=== PATIENT | female | born 1970 | race Caucasian/White ===

== ENCOUNTER 2017-06-18 15:09 | Emergency (ER) | payer OTHER ==
[2017-06-18 15:20] VITALS: BP 130/73
--- NOTE | 2017-06-26 21:49 | UC ---
Back Pain HPI - HPI Summary HPI Summary: 47 YEAR OLD FEMALE PRESENTS WITH COMPLAINS OF LOWER BACK PAIN. - History of Current Complaint Chief Complaint: UCBackPain Stated Complaint: BACK INJURY Time Seen by Provider: 06/18/17 15:22 Hx Obtained From: Patient Hx Last Menstrual Period: IUD Onset/Duration: Sudden Onset Timing: Constant Pain Intensity: 8 Pain Scale Used: 0-10 Numeric Character: Sharp Aggravating: Movement Associated Signs And Symptoms: Positive: Negative - Allergies/Home Medications Allergies/Adverse Reactions: Allergies Allergy/AdvReac Type Severity Reaction Status Date / Time Clonazepam Allergy Severe Altered Verified 06/18/17 15:20 Mental Status PMH/Surg Hx/FS Hx/Imm Hx Previously Healthy: Yes - Surgical History Surgical History: Yes Surgery Procedure, Year, and Place: RT FOOT TENDON SURGERY 2008 x2, PARTIAL DISCECTOMY 1995. LAMINECTOMY -L3-11 MAY 2014-07/2016 NREMOVED HARDWARE FROM RIGHT FOOT - Family History Known Family History: Negative: Cardiac Disease - pt denies - Social History Alcohol Use: Rare Alcohol Amount: 1-2 PER MONTH Substance Use Type: None Smoking Status (MU): Former Smoker Type: Cigarettes Amount Used/How Often: 1/2 ppd Length of Time of Smoking/Using Tobacco: 5 years Have You Smoked in the Last Year: Yes Household Exposure Type: Cigarettes - Immunization History Most Recent Influenza Vaccination: [id number] season Review of Systems Constitutional: Negative Skin: Negative Eyes: Negative ENT: Negative Respiratory: Negative Cardiovascular: Negative Gastrointestinal: Negative Genitourinary: Negative Motor: Negative Neurovascular: Negative Musculoskeletal: Myalgia, Other: - LOWER LUMBAR BACK PAIN Neurological: Negative Psychological: Negative All Other Systems Reviewed And Are Negative: Yes Physical Exam Triage Information Reviewed: Yes Vital Signs: Initial Vital Signs Temp 37.2 C 06/18/17 15:17 Pulse 98 06/18/17 15:17 Resp 12 06/18/17 15:17 BP 130/73 06/18/17 15:17 Pulse Ox 99 06/18/17 15:17 Eye Exam: Normal ENT Exam: Normal Dental Exam: Normal Neck exam: Normal Neck: Positive: 1 Respiratory Exam: Normal Cardiovascular Exam: Normal Abdominal Exam: Normal Musculoskeletal: Positive: Strength Limited @, ROM Limited @, Other: - LOWER LUMBAR PAIN Neurological Exam: Normal Psychological Exam: Normal Skin Exam: Normal Back Pain Course/Dx - Differential Dx/Diagnosis Provider Diagnoses: LOWER BACK PAIN Discharge - Discharge Plan Condition: Stable Disposition: HOME Prescriptions: Meloxicam [Mobic] 7.5 mg PO BID PC #30 tab Methocarbamol TAB* [Robaxin 500 MG TAB*] 500 mg PO TID PRN #30 tab PRN Reason: Spasms - Back Patient Education Materials: Back Pain (ED), Lower Back Exercises (ED) Referrals: Janet Prabhakar MD [Primary Care Provider] -
== END 2017-06-18 15:33 | disposition home or self-care (01) ==
LOC: UCEAST 15:09
DX: M54.5 Low back pain (principal); Z87.891 Personal history of nicotine dependence
CPT/HCPCS: 99212; G0463

== ENCOUNTER 2018-09-09 10:44 | Observation (INO) | payer BC, OTHER ==
--- NOTE | 2018-09-09 10:58 | ED ---
Palpitations / Dysrhythmia - HPI Summary HPI Summary: A 48 y/o female MEKHI presents to the ED c/o heart palpitations since 09:15 2017. She was originally seen at Urgent Care but was brought over to the ED. Per EMS her lungs were clear, she was tachycardic, somewhat febrile and was given Aspirin, Nitroglycerin and Zofran. She also c/o CP that she describes as a pressure, HARDY and nausea. She denies chills, ear pain, sore throat, blurred vision, double vision, neck pain, SOB, ABD pain, back pain, dysuria, hematuria, blood in the stool, constipation, edema, bruising, and rashes. The pt is a smoker, a Hx of anxiety and has a FHx of cardiac problems. - History of Current Complaint Chief Complaint: EDDysrhythmPalp Hx Obtained From: Patient, EMS Onset/Duration: Sudden Onset Severity Initially: Moderate Severity Currently: Moderate - Allergy/Home Medications Allergies/Adverse Reactions: Allergies Allergy/AdvReac Type Severity Reaction Status Date / Time clonazepam Allergy Altered Verified 09/09/18 10:57 Mental Status Home Medications: Home Medications Acetaminophen/Diphenhydramine [Tylenol Pm Ex-Strength Caplet] 2 tab PO QPM PRN 09/09/18 [History Confirmed 09/09/18] Esomeprazole(NF) [NexIUM(NF)] 80 mg PO DAILY 09/09/18 [History Confirmed ] PMH/Surg Hx/FS Hx/Imm Hx Endocrine/Hematology History: Denies: Hx Diabetes, Hx Thyroid Disease Cardiovascular History: Denies: Hx Hypertension, Hx Pacemaker/ICD, Other Cardiovascular Problems/ Disorders Respiratory History: Reports: Hx Asthma - Anxiety induced Denies: Hx Chronic Obstructive Pulmonary Disease (COPD) GI History: Reports: Hx Gastroesophageal Reflux Disease Denies: Hx Ulcer, Other GI Disorders History: Denies: Hx Renal Disease Musculoskeletal History: Reports: Hx Arthritis - FOOT, BACK, Hx Back Problems - /back surgery ',L3-L4 lami 05/21, Other Musculoskeletal History - foot surgeryx2 for torn tendon Sensory History: Reports: Hx Contacts or Glasses - contacts and glasses Denies: Hx Hearing Aid Opthamlomology History: Reports: Hx Contacts or Glasses - contacts and glasses Psychiatric History: Reports: Hx Anxiety, Hx Depression Denies: Hx Panic Disorder - Cancer History Hx Chemotherapy: No Hx Radiation Therapy: No - Surgical History Surgery Procedure, Year, and Place: RT FOOT TENDON SURGERY 2009 x2, PARTIAL DISCECTOMY 1996. LAMINECTOMY -L3-11 MAY 2014-07/2016 NREMOVED HARDWARE FROM RIGHT FOOT Hx Anesthesia Reactions: Yes - feels nausea after surgery and after went home Infectious Disease History: No Infectious Disease History: Denies: Hx Hepatitis, Hx Human Immunodeficiency Virus (HIV), Traveled Outside the [place] in Last 30 Days - Family History Known Family History: Positive: Cardiac Disease - Social History Alcohol Use: Rare Alcohol Amount: 1-2 PER MONTH Substance Use Type: Reports: None Smoking Status (MU): Light Every Day Tobacco Smoker Type: Cigarettes Amount Used/How Often: 1/2 ppd Length of Time of Smoking/Using Tobacco: 5 years Have You Smoked in the Last Year: Yes Review of Systems Positive: Fever. Negative: Chills Eyes: Negative - double vision Negative: Blurred Vision ENT: Negative - Neck pain Negative: Sore Throat, Ear Ache Positive: Palpitations, Chest Pain Negative: Shortness Of Breath Positive: Nausea. Negative: Abdominal Pain Genitourinary: Negative - blood in stool, constipation Negative: dysuria, hematuria Negative: Myalgia - back, Edema Negative: Rash, Bruising Positive: Headache Positive: Anxious All Other Systems Reviewed And Are Negative: No Physical Exam - Summary Physical Exam Summary: Appearance: Alert, conversive, nontoxic appearing Skin: Warm, dry, no mottling, no rashes, no contusions HEENT: EOMI, PERRL, moist mucous membranes Neck: No masses on the neck, supple Respiratory: Clear to auscultation, breath sounds present, no rales, no rhonchi , no wheezes Cardiovascular: RRR, pulses are symmetrical in both lower and upper extremities Abdomen: Soft, non-tender Bowel Sounds: Present Musculoskeletal: No CVA tenderness, no obvious deformity, moving all extremities in a grossly normal manner Neurological: A&Ox3, CN II-XII Intact, moving all extremities symmetrically Psychiatric: anxious Triage Information Reviewed: Yes Vital Signs On Initial Exam: Initial Vitals Temp Pulse Resp BP Pulse Ox 98.7 F 104 22 139/79 97 09/09/18 10:45 09/09/18 10:45 09/09/18 10:45 11/02/18 10:45 09/09/18 10:45 Vital Signs Reviewed: Yes Diagnostics - Vital Signs Vital Signs Temp Pulse Resp BP Pulse Ox 09/09/18 10:45 98.7 F 104 22 139/79 97 - Laboratory Result Diagrams: 09/09/18 11:10 09/09/18 11:10 Lab Statement: Any lab studies that have been ordered have been reviewed, and results considered in the medical decision making process. - Radiology CXR Radiology Interpretation Completed By: Radiologist - No active cardiopulmonary disease noted. This report has been reviewed by the ED physician. - EKG 10:42 Cardiac Rate: NL - 95 bpm EKG Rhythm: Sinus Rhythm Summary of EKG Findings: normal QRS, normal QTc, normal axis, normal ST/T wave Re-Evaluation - Re-Evaluation First Eval Re-Evaluation Time: 11:50 Change: Unchanged Comment: Told the pt about the negative CXR and lab results, told pt she will be admitted. Course/Dx - Course Course Of Treatment: A 48 y/o female MEKHI presents to the ED c/o heart palpitations since 09:15 09/09/2018. Her CXR and her troponin were negative. DX: CP. She will be admitted to Dr. Jessica and is agreeable to this plan. - Diagnoses Provider Diagnoses: Chest pain - Physician Notifications Discussed Care Of Patient With: Vee Jessica Time Discussed With Above Provider: 12:15 Instructed by Provider To: Admit As Inpatient Discharge - Sign-Out/Discharge Documenting (check all that apply): Patient Departure - Admit - Discharge Plan Condition: Fair Disposition: ADMITTED TO [facility] - Billing Disposition and Condition Condition: FAIR Disposition: Admitted to [facility] - Attestation Statements Document Initiated by Scribe: Yes Documenting Scribe: Willis Lutz Provider For Whom Biju is Documenting (Include Credential): Phylicia Riley MD Scribe Attestation: I, Willis Lutz, scribed for Phylicia Riley MD on 09/09/18 at 1914. Scribe Documentation Reviewed: Yes Provider Attestation: The documentation as recorded by the Willis iyer accurately reflects the service I personally performed and the decisions made by me, Phylicia Riley MD
[2018-09-09 11:23] LABS: ABS Basophils 0.1 10^3/ul (0-0.2); ABS Eosinophils 0.3 10^3/ul (0-0.6); ABS Lymphocytes 2.8 10^3/ul (1.0-4.8); ABS Monocytes 0.5 10^3/ul (0-0.8); ABS Neutrophils 5.5 10^3/ul (1.5-7.7); ABS Nucleated RBC 0 10^3/ul; Hematocrit 42 % (35-47); Hemoglobin 14.6 g/dl (12.0-16.0); Lymphocyte % 30.2 % (25-47); Mean Corpuscular HGB Conc 35 g/dl (31-36); Mean Corpuscular Hemoglobin 33 pg (27-31); Mean Corpuscular Volume 95 fL (80-97); Mean Platelet Volume 8.2 um3 (7.4-10.4); Nucleated Red Blood Cells % 0.1; Platelet Count 368 10^3/ul (150-450); Red Blood Count 4.45 10^6/ul (4.00-5.40); Red Cell Distribution Width 13 % (10.5-15); White Blood Count 9.2 10^3/ul (3.5-10.8)
[2018-09-09 11:35] LABS: INR 0.93 (0.77-1.02)
[2018-09-09 11:38] LABS: EGFR Non-African American 86.8 (>60)
--- NOTE | 2018-09-09 11:41 | RAD ---
Indication: Chest pain. Single frontal view of the chest performed at 1110 hours was reviewed. Comparison is made with previous exam dated May 01, 2014. No mediastinal shift is noted. Heart is of normal size and configuration. Lung peraza appear clear. IMPRESSION: NO ACTIVE CARDIOPULMONARY DISEASE IS NOTED.
[2018-09-09] MEDS ORDERED: Nitroglycerin 2% OINT* 1 GM PAK TOPICAL ONE ×2 (12:06→21:39)
[2018-09-09] MEDS ORDERED: Ibuprofen TAB* 400 MG PO PRN (12:47)
[2018-09-09] MEDS ORDERED: Aspirin 81 mg CHEW TAB* 81 MG TAB.CHEW PO ONE (12:52)
[2018-09-09] MEDS ORDERED: Acetaminophen TAB* 325 MG PO PRN (12:52)
[2018-09-09] MEDS: Heparin VIAL(*) 5000 UNITS/ML VIAL (FIVE THOUSAND) SUBCUT SCH ×2 (14:04→21:54)
--- NOTE | 2018-09-09 15:09 | HP ---
CC: Dr. Janet Prabhakar. HISTORY AND PHYSICAL: DATE OF ADMISSION: 09/09/18 TIME OF EVALUATION: 12:40 p.m. PRIMARY CARE PROVIDER: Janet Prabhakar M.D. CHIEF COMPLAINT: Chest pressure and palpitations. HISTORY OF PRESENT ILLNESS: Mrs. De Guzman is a 48-year-old lady with a past medical history of anxiety/depression, who presents to the emergency room with complaints of chest pressure and palpitations. 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 She states that around 9 a.m. 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 She states that the palpitations come and go, but the chest pressure progressed to a 5/10 intensity radiating to her neck and jaw. She is very clear that this pressure was not chest pain. EMS was called. She received aspirin, nitroglycerin, and Zofran with some improvement of her symptoms. At the time of my interview, she states that the chest pressure has much improved, the shortness of breath is also resolved, but the palpitations still come and go. She denies fever, chills, vomiting, abdominal pain, diarrhea, cough, or urinary complaints. PAST MEDICAL HISTORY: 1. Anxiety. 2. Tobacco abuse. MEDICATIONS: 1. Acetaminophen/diphenhydramine two tablets p.o. at bedtime as needed for insomnia and pain. 2. Vitamin B12 of 500 mcg p.o. daily. 3. Nexium 80 mg p.o. daily. 4. Ibuprofen 800 mg p.o. q.8 hours p.r.n. pain. 5. Paroxetine 20 mg p.o. daily. ALLERGIES: With CLONAZEPAM, the patient has altered mental status. FAMILY HISTORY: The patient has a strong family history of coronary artery disease. Her father had history of RI in his 70s with 4 to 5 stents, ischemic cardiomyopathy. Her brother had his first heart attack at age 46 with 5 stents. Her mother is alive and has dementia. SOCIAL HISTORY: The patient is a smoker since her early 20s, up to one pack a day. She states that she quit for more than 10 years and started smoking again in her 40s up to 10 cigarettes a day now. She denies alcohol or drug use. 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 Surrogate decision maker is her daughter, Cici De Guzman, phone number is [phone]. REVIEW OF SYSTEMS: A 14-point review of systems was performed and all the pertinent negative and positive findings are in the HPI. PHYSICAL EXAMINATION GENERAL: The patient is a pleasant lady, sitting up on the ED stretcher, in no acute distress. VITAL SIGNS: Temperature 98.7, heart rate is 79, respiratory rate 12, oxygen saturation is 98% on room air, blood pressure is 125/82. HEENT: Pupils are equal. Moist mucous membranes. CHEST: Breath sounds bilaterally with no added sounds. CVS: Normal S1 and S2. Regular rate and rhythm. ABDOMEN: Soft. Bowel sounds are present. EXTREMITIES: No edema. NEUROLOGIC: She is alert and oriented x3. Able to move all 4 extremities. LABORATORY DATA: The patient had a CBC that showed WBC of 9.2, hemoglobin 14.6 , hematocrit of 42, and platelets of 368 with 59% neutrophils. INR 0.93. Chemistry showed sodium of 138, potassium 4.6, chloride of 105, bicarb of 25, BUN is 13, creatinine 0.72, glucose 125, calcium 9.5, magnesium 1.9. LFTs are normal. First troponin was 0. TSH is 1.7. Chest x-ray shows no active cardiopulmonary disease. EKG done at 10:42 shows normal sinus rhythm at 95 beats per minute with no ST-T changes. There is no significant change when compared to her prior EKG from 2013. ASSESSMENT AND PLAN: Mrs. De Guzman is a 48-year-old lady with past medical history of anxiety who presents to the emergency room with complaints of chest pressure and palpitations. 1. Chest pressure/palpitations. Rule out acute coronary syndrome. The patient will be admitted to Telemetry. We are going to check serial troponins and monitor her on telemetry. An echocardiogram was also requested. At the time of this interview, the patient's symptoms have improved. If her troponins are negative, her echo shows no significant wall motion abnormalities and telemetry does not show any significant arrhythmias, I agree the patient can be discharged with a request for a stress test as outpatient. Considering her family history and tobacco abuse, the patient will also have a lipid profile checked. Although her LYNDON score is only 1, it is prudent at least to rule her out this admission and then pursue stress test as outpatient. 2. Anxiety. We will continue her Paroxetine. 3. DVT prophylaxis. The patient has a score of 2 on a DVT prophylaxis risk assessment guide and she will be started on subcutaneous heparin. 4. Code status is full. TIME SPENT: Approximately 45 spent with the patient, reviewing medical records , reviewing physical examination to complete this admission, more than half of this time was spent [id number] with the patient and coordination of care. [id number]/[facility] #: [id number] [facility]
--- NOTE | 2018-09-09 17:21 | ECHO ---
Amended Report Patient: MARÍA ZHOU [facility] Rec#: [id number] : 1970 Date: 09/09/2018 Age: 48y Height: 175.26 cm / 69.0 in Weight: 86.64 kg / 191.0 lbs Sex: F BSA: 2.03 Room#: 452 Admit Date#: 09/09/2018 Type: Inpatient Referring: Vee Boateng MD Reading: Barrington Carrillo MD Feed Elevator Worker: Gisela Jesus RDCS CC: Janet Prabhakar MD Transthoracic Echocardiogram Indication: Palpitations, chest pain BP: 125/82 HR: 61 Rhythm: NSR Findings History: Smoker. Technical Comments: The study quality is fair. Completed at 1530. Left Ventricle: The left ventricular chamber size is normal. There is no left ventricular hypertrophy. Global left ventricular wall motion and contractility are within normal limits. There is normal left ventricular systolic function. The estimated ejection fraction is 60-65%. Normal left ventricular diastolic filling is observed. Left Atrium: The left atrial chamber size is normal. Right Ventricle: Moderator Band present. The right ventricular cavity size is normal. The right ventricle wall thickness is normal. The right ventricular global systolic function is normal. Right Atrium: The right atrial cavity size is normal. Aortic Valve: The aortic valve is trileaflet. The aortic valve leaflets are mildly thickened. There is no evidence of aortic regurgitation. There is no evidence of aortic stenosis. Mitral Valve: The mitral valve leaflets are mildly thickened. There is a trace of mitral regurgitation. There is no evidence of mitral stenosis. Tricuspid Valve: The tricuspid valve leaflets are normal. There is trace tricuspid regurgitation. Unable to estimate the right ventricular systolic pressure. There is no tricuspid stenosis. Pulmonic Valve: The pulmonic valve appears normal. There is a trace pulmonic regurgitation. There is no pulmonic stenosis. Pericardium: There is no significant pericardial effusion. Aorta: There is no dilatation of the ascending aorta. There is no dilatation of the aortic arch. The aortic root is normal in size. Pulmonary Artery: The main pulmonary artery appears normal. Venous: The inferior vena cava appears normal in size. There is a greater than 50% respiratory change in the inferior vena cava dimension. Summary: There was not any prior study for comparison. Conclusions The estimated ejection fraction is 60-65%. There is a trace of mitral regurgitation. There is trace tricuspid regurgitation. Measurements Name Value Normal Range RVIDd (AP) 2D 3.1 cm (0.9 - 2.6) RVDdMajor (2D) 3.4 cm (2.2 - 4.4) RVAW (2D) 0.5 cm (0.2 - 0.5) RAd ISD 4CH 4.1 cm (3.4 - 4.9) RA (A4C)W 3.4 cm (2.9 - 4.6) IVSd (2D) 0.9 cm (0.6 - 1) LVPWd (2D) 0.9 cm (0.6 - 1) LVIDd (2D) 3.9 cm (3.6 - 5.4) LVIDs (2D) 2.8 cm - LV FS (2D) 28 % (25 - 45) Aortic Annulus 1.9 cm (1.4 - 2.6) Ao root diameter (2D) 2.9 cm (2.1 - 3.5) Ascending Ao 2.8 cm (2.1 - 3.4) Aortic arch 2.3 cm (1.8 - 3.4) LA dimension (AP) 2D 3.3 cm (2.3 - 3.8) LAd ISD 4CH 5 cm (2.9 - 5.3) LA ISD 4CH W 3.6 cm (2.5 - 4.5) Name Value Normal Range LA ESV SP 4CH (A/L) 55 ml - LA ESV SP 2CH (A/L) 37 ml - LA ESV BP (A/L) 45 ml - LA ESV BP (A/L) index 22 ml/m2 - LA ESV SP 4CH (MOD) 53 ml - LA ESV SP 2CH (MOD) 35 ml - Name Value Normal Range MV E-wave Vmax 0.72 m/sec - MV deceleration time 281 msec - MV A-wave Vmax 0.62 m/sec - MV E:A ratio 1.2 ratio - LV septal e' Vmax 0.08 m/sec - LV lateral e' Vmax 0.13 m/sec - LV E:e' septal ratio 9 ratio - LV E:e' lateral ratio 5.54 ratio - Name Value Normal Range AV Vmax 1.3 m/sec - AV VTI 24.63 cm - AV peak gradient 6.96 mmHg - AV mean gradient 3.64 mmHg - LVOT Vmax 1.07 m/sec - LVOT VTI 21.36 cm - LVOT peak gradient 4.62 mmHg - LVOT mean gradient 2.28 mmHg - ALECIA Vmax 1.2 m/sec - Name Value Normal Range IVC diameter 2 cm - Name Value Normal Range PV Vmax 0.92 m/sec - PV peak gradient 3.4 mmHg -
[2018-09-09] MEDS ORDERED: hydrOXYzine HCL TAB* 25 MG PO ONE (19:38)
[2018-09-09] MEDS: Docusate CAP* 100 MG PO SCH (20:16)
[2018-09-09] MEDS ORDERED: diPHENhydraMINE PO* 50 MG PO PRN (21:39)
[2018-09-10] MEDS ORDERED: Nitro Patch/OINT Remove PATCH OFF ONE (05:00)
[2018-09-10] MEDS: Heparin VIAL(*) 5000 UNITS/ML VIAL (FIVE THOUSAND) SUBCUT SCH (05:51)
[2018-09-10] MEDS ORDERED: Omeprazole CAP* 20 MG PO SCH (07:30)
[2018-09-10] MEDS ORDERED: Aspirin EC TAB* 81 MG TAB.EC PO SCH (09:00)
[2018-09-10] MEDS ORDERED: PARoxetine HCL TAB* 20 MG PO SCH (09:00)
[2018-09-10] MEDS ORDERED: Cyanocobalamin TAB* 500 MCG PO SCH (09:00)
[2018-09-10 09:12] VITALS: BP 118/76
[2018-09-10] MEDS: Docusate CAP* 100 MG PO SCH (09:21)
--- NOTE | 2018-09-11 04:00 | DS ---
CC: Dr. Janet Prabhakar. * DISCHARGE SUMMARY: DATE OF ADMISSION: 09/09/18 DATE OF DISCHARGE: 09/10/18 PRIMARY CARE PROVIDER: Dr. Janet Prabhakar. ATTENDING PHYSICIAN: Dr. Dejesus * (dictated by Nery Cyr NP) PRIMARY DIAGNOSES: 1. Chest pain. 2. Heart palpitations. 3. Anxiety. SECONDARY DIAGNOSIS: 1. Depression. STUDIES WHILE IN THE HOSPITAL: 1. Chest x-ray on 09/09/18 reads as no active cardiopulmonary disease. 2. Transthoracic echocardiogram on 09/09/18 reads as the estimated ejection fraction is 60% to 65%. There is trace mitral regurgitation and trace tricuspid regurgitation and there is no atrial or ventricular hypertrophy. There are no wall motion abnormalities. HISTORY OF PRESENT ILLNESS AND HOSPITAL COURSE: Ms. De Guzman is a 48-year-old woman with past medical history of anxiety and depression, who presented to the emergency room on 09/09/18 with complaints of chest pressure and palpitations. Please see the history and physical by Dr. Hong for a full summary of the events leading up to this hospitalization; but in short, she was at work when she began to have palpitations, which she described as "fluttering" and associated shortness of breath and chest pressure. She occasionally has heart palpitation, though this pressure was more significant than any she had previously experienced. She received aspirin and nitroglycerin and Zofran with some relief of symptoms. She had a LYNDON score of 1. She was admitted on observation by the hospitalist service for rule out acute coronary syndrome. The patient was monitored on telemetry overnight. She had no arrhythmias. She has serial troponins, which were all 0.00. She had an echocardiogram as noted above with no significant findings. When I saw the patient this morning, she reports feeling well. She is anxious to return home. She continues to report mild pressure, though this is significantly reduced from yesterday and she is able to carry on with normal activities without issue. I had a long discussion with the patient regarding possible causes of the chest pressure including anxiety, GERD or a possible arrhythmia such as supraventricular tachycardia. I also discussed with the patient the ways to manage her anxiety as she did note that she had significant anxiety during the incident yesterday and felt as though her anxiety made the situation worse and heightened her symptoms. She did receive hydroxyzine in the emergency room yesterday, which she did not feel relieved her anxiety, though the patient is agreeable to trying this again as an outpatient. Because the exact etiology of her chest discomfort is still unknown, and because of her extensive family history of coronary artery disease , it has been recommended that she follow up with her primary care provider to schedule stress test because of her frequent palpitations. She has also been encouraged to discuss with her primary care provider a possible Holter monitor or loop recorder. We did discuss other medications to control anxiety and she has been instructed to follow up with her primary care provider about those. She does note that she has significant heartburn on a regular basis and takes Nexium daily as well as ranitidine as needed. She has had an endoscopy earlier this year and feels as though her symptoms are for the most part well managed. She had a lipid panel while in the hospital, which showed significantly elevated triglycerides, moderately elevated cholesterol and elevated LDL and a decreased HDL. She also had an A1c of 6.0, putting her in the range of prediabetes. I have discussed with her the importance of diet and exercise in order to improve these numbers. Ms. De Guzman is stable for discharge today. Vital signs are as follows: Temp 97.6 , heart rate 87, respiratory rate 16, oxygen saturation 97% on room air, blood pressure 118/76. DISCHARGE MEDICATION: New medication: 1. Hydroxyzine 12.5 to 25 mg p.o. t.i.d. p.r.n. anxiety. Continued Home Meds: 1. Tylenol PM 2 tabs p.o. at bedtime p.r.n. 2. Vitamin B12 500 mcg p.o. daily. 3. Esomeprazole 80 mg p.o. daily. 4. Ibuprofen 800 mg p.o. q.8 hours p.r.n. pain. 5. Paroxetine 20 mg p.o. daily. DISCHARGE PLAN: Ms. De Guzman will be discharged to home. Activity will be as tolerated. Diet will be regular as tolerated, though she has been encouraged to improve her diet based on her cholesterol and A1c. Medications are noted above. I have prescribed the patient hydroxyzine as needed for anxiety. She will attempt to use the hydroxyzine, and if it is not effective at relieving her anxiety, she will speak with her primary care provider about switching to another medication such as BuSpar. She may resume her other medications. She should follow up with her primary care provider in 4 to 7 days. She has been instructed to return to the ER or nearest hospital for any worsening of symptoms , shortness of breath, lightheadedness, dizziness, chest discomfort, high fevers , chills, night sweats, loss of consciousness or any other worrisome signs or symptoms. This is a summarized report of a complex medical history and hospital stay. For further details, please see the entire medical record. TIME SPENT: Approximately 60 minutes were spent on this discharge, greater than half of that time was spent [id number] with the patient discussing discharge plans and instructions. NERY CYR NP [id number]/[facility] #: [id number] [facility]
== END 2018-09-10 12:30 | disposition home or self-care (01) ==
LOC: ED 10:44 → MEDTELE 12:54
PROVIDERS: ADMIT Internal Medicine; ATTEND Student in an Organized Health Care Education/Training Program
DX: R07.9 Chest pain, unspecified (principal); R00.2 Palpitations; F41.9 Anxiety disorder, unspecified; F32.9 Major depressive disorder, single episode, unspecified; F17.210 Nicotine dependence, cigarettes, uncomplicated; R51 Headache
CPT/HCPCS: 36415; 71045; 80053; 80061; 83036; 83721; 83735; 84443; 84484; 85025; 85610; 85730; 93005; 93306; 99283; A9270-GY; G0378; J1644

== ENCOUNTER 2019-11-13 09:54 | Emergency (ER) | payer BC ==
--- NOTE | 2019-11-13 10:54 | ED ---
Upper Extremity Pain - HPI Summary HPI Summary: Patient is a 49 y/o F presenting to the ED for a chief complaint of right elbow pain that began on 11/11/19. Patient states that the elbow pain has worsened since initial onset. Patient describes her elbow pain as an aching sensation. She also reports edema to the right elbow. Patient admits a fever of 99 F on 04/27. She denies nausea or vomiting. No trauma or injury to the area is noted. She notes that applying cold compresses to the area worsens her pain and applying heat to the area improves the pain. She has taken ibuprofen 600 mg for her pain. An x-ray was performed by her PCP was unremarkable and showed no perfusion. PMHx is significant for anxiety-induced asthma. PSHx is significant for foot surgery and back surgery. Patient admits tobacco use, but denies alcohol or drug use. Allergies noted. Medications reviewed. - History of Current Complaint Chief Complaint: EDExtremityUpper Stated Complaint: PAIN IN RIGHT ELBOW PER PT Time Seen by Provider: 11/13/19 10:40 Hx Obtained From: Patient Hx Last Menstrual Period: IUD Mechanism Of Injury: Unknown Onset/Duration: Atraumatic, Still Present Timing: Constant Severity Initially: Moderate Severity Currently: Moderate Pain Location: Elbow - Right Character: Aching Aggravating Factor(s): Other - Cold compresses Alleviating Factor(s): Heat Associated Signs & Symptoms: Positive: Swelling - Right elbow, Fever - In vitals , 98.7 F. Negative: Nausea, Vomiting - Allergies/Home Medications Allergies/Adverse Reactions: Allergies Allergy/AdvReac Type Severity Reaction Status Date / Time clonazepam Allergy Altered Verified 11/13/19 09:58 Mental Status Home Medications: Home Medications Atorvastatin* [Lipitor*] 10 mg PO DAILY 11/13/19 [History Confirmed 11/13/19] celeCOXIB CAP* [CeleBREX CAP*] 100 mg PO DAILY 11/13/19 [History Confirmed 11/13] PMH/Surg Hx/FS Hx/Imm Hx Previously Healthy: Yes Endocrine/Hematology History: Denies: Hx Diabetes, Hx Thyroid Disease Cardiovascular History: Denies: Hx Hypertension, Hx Pacemaker/ICD, Other Cardiovascular Problems/ Disorders Respiratory History: Reports: Hx Asthma - Anxiety induced Denies: Hx Chronic Obstructive Pulmonary Disease (COPD) GI History: Reports: Hx Gastroesophageal Reflux Disease Denies: Hx Ulcer, Other GI Disorders History: Denies: Hx Renal Disease Musculoskeletal History: Reports: Hx Arthritis - FOOT, BACK, Hx Back Problems - /back surgery '96,L3-L4 lami 05/21, Other Musculoskeletal History - foot surgeryx2 for torn tendon Sensory History: Reports: Hx Contacts or Glasses - contacts and glasses Denies: Hx Legally Blind, Hx Deafness, Hx Hearing Aid Opthamlomology History: Reports: Hx Contacts or Glasses - contacts and glasses Denies: Hx Legally Blind EENT History: Denies: Hx Deafness Neurological History: Reports: Hx Headaches Psychiatric History: Reports: Hx Anxiety, Hx Depression Denies: Hx Panic Disorder - Cancer History Hx Chemotherapy: No Hx Radiation Therapy: No - Surgical History Surgical History: Yes Surgery Procedure, Year, and Place: RT FOOT TENDON SURGERY 2008 x2, PARTIAL DISCECTOMY 1995. LAMINECTOMY -L3-11 MAY 2014-07/2016 NREMOVED HARDWARE FROM RIGHT FOOT Hx Anesthesia Reactions: Yes - feels nausea after surgery and after went home Infectious Disease History: No Infectious Disease History: Denies: Hx Hepatitis, Hx Human Immunodeficiency Virus (HIV), Traveled Outside the [place] in Last 30 Days - Family History Known Family History: Positive: Cardiac Disease - Social History Occupation: Employed Full-time Lives: With Family Alcohol Use: Rare Alcohol Amount: 1-2 PER MONTH Hx Substance Use: No Substance Use Type: Reports: None Hx Tobacco Use: Yes Smoking Status (MU): Light Every Day Tobacco Smoker Type: Cigarettes Amount Used/How Often: 1/2 ppd Length of Time of Smoking/Using Tobacco: 5 years Have You Smoked in the Last Year: Yes Review of Systems Positive: Fever - In vitals, 98.7 F Negative: Vomiting, Nausea Positive: Arthralgia - Right elbow, Edema - Right elbow All Other Systems Reviewed And Are Negative: Yes Physical Exam - Summary Physical Exam Summary: Constitutional: Well-developed, Well-nourished, Alert. (-) Distressed Skin: Warm, Dry HENT: Normocephalic; Atraumatic Eyes: Conjunctiva normal Neck: Musculoskeletal ROM normal neck. (-) JVD, (-) Stridor, (-) Tracheal deviation Cardio: Rhythm regular, rate normal, Heart sounds normal; Intact distal pulses; Radial pulses are 2+ and symmetric. (-) Murmur Pulmonary/Chest wall: Effort normal. (-) Respiratory distress, (-) Wheezes, (-) Rales Abd: Soft, (-) tenderness, (-) Distension, (-) Guarding, (-) Rebound Musculoskeletal: (-) Edema. Tenderness to the lateral epicondyle, no obvious swelling or warmth, limited ROM, but able to range to 45 degrees. Radial pulses 2 +. Lymph: (-) Cervical adenopathy Neuro: Alert, Oriented x3 Psych: Mood and affect Normal Triage Information Reviewed: Yes Vital Signs On Initial Exam: Initial Vitals Temp Pulse Resp BP Pulse Ox 98.7 F 110 18 140/90 98 11/13/19 09:56 11/13/19 09:56 11/13/19 09:56 11/13/19 09:56 11/13/19 09:56 Vital Signs Reviewed: Yes Procedures - Sedation Patient Received Moderate/Deep Sedation with Procedure: No Diagnostics - Vital Signs Vital Signs Temp Pulse Resp BP Pulse Ox 11/13/19 09:56 98.7 F 110 18 140/90 98 - Laboratory Result Diagrams: 11/13/19 11:06 11/13/19 11:06 Lab Statement: Any lab studies that have been ordered have been reviewed, and results considered in the medical decision making process. Course/Dx - Course Course Of Treatment: Patient is here with pain in her elbow. Patient's tenderness or lateral epicondyle. Patient has no swelling or warmth to her elbow. Patient does have limited range of motion but is able to range her elbow. Patient had a CBC, CRP, ESR performed which were all grossly unremarkable. Slightly slightly elevated ESR. Patient had an x-ray at wall now which had no effusion. Patient likely has lateral epicondylitis and is given strict precautions for septic arthritis. - Diagnoses Provider Diagnoses: Lateral epicondylitis Discharge ED - Sign-Out/Discharge Documenting (check all that apply): Patient Departure - Discharge - Discharge Plan Condition: Stable Disposition: HOME Patient Education Materials: Tennis Elbow (ED) Forms: *Work Release Referrals: Janet Prabhakar MD [Primary Care Provider] - Jose Salguero MD [Medical Doctor] - Additional Instructions: PLEASE RETURN TO EMERGENCY DEPARTMENT IF YOU ARE UNABLE TO MOVE YOUR ELBOW, YOUR ELBOW IS SWOLLEN AND RED, FEVER, OR NEW OR WORSENING SYMPTOMS. Please follow up with your primary care physician and Dr. Salguero. Please make all follow-ups in 1-3 days unless I advise you otherwise. Wear a brace. Take 600 mg Motrin or Tylenol as needed. - Billing Disposition and Condition Condition: STABLE Disposition: Home - Attestation Statements Document Initiated by Biju: Yes Documenting Scribe: Blank Aleman Provider For Whom Biju is Documenting (Include Credential): Allan Pimentel MD Scribe Attestation: I, Blank Aleman, scribed for Allan Pimentel MD on 11/13/19 at 1356. Scribe Documentation Reviewed: Yes Provider Attestation: The documentation as recorded by the Blank iyer accurately reflects the service I personally performed and the decisions made by me, Allan Pimentel MD Status of Scribe Document: Viewed
[2019-11-13 11:17] LABS: ABS Basophils 0.1 10^3/ul (0-0.2); ABS Eosinophils 0.4 10^3/ul (0-0.6); ABS Lymphocytes 3.5 10^3/ul (1.0-4.8); ABS Monocytes 0.6 10^3/ul (0-0.8); ABS Neutrophils 4.5 10^3/ul (1.5-7.7); Eosinophil % 4.5 %; Hematocrit 43 % (35-47); Hemoglobin 14.9 g/dL (12.0-16.0); Lymphocyte % 38.3 %; Mean Corpuscular HGB Conc 35 g/dL (31-36); Mean Corpuscular Hemoglobin 33 pg (27-31); Mean Corpuscular Volume 95 fL (80-97); Nucleated Red Blood Cells % 0.1; Platelet Count 350 10^3/uL (150-450); Red Blood Count 4.47 10^6 /uL (3.70-4.87); Red Cell Distribution Width 14 % (10-15); White Blood Count 9.1 10^3/uL (3.5-10.8)
[2019-11-13 11:34] LABS: Albumin 4.2 g/dL (3.2-5.2); Albumin/Globulin Ratio 1.4 (1-3); BUN/Creatinine Ratio 18.1 (8-20); C Reactive Protein 5.1 mg/L (<8.01); Calcium 9.4 mg/dL (8.6-10.3); EGFR African American 88.8 (>60); EGFR Non-African American 73.4 (>60); Globulin 3.1 g/dL (2-4); Potassium 4.1 mmol/L (3.5-5.0); Total Bilirubin 0.3 mg/dL (0.2-1.0); Total Protein 7.3 g/dL (6.4-8.9)
[2019-11-13 11:39] LABS: HCG Pregnancy 0.87 mIU/mL
[2019-11-13] MEDS ORDERED: Ketorolac INJ* 30 MG/ML 1 ML VIAL IM ONE (11:56)
[2019-11-13 13:35] LABS: Erythrocyte Sed Rate 22 mm/Hr (0-19)
[2019-11-13 14:32] VITALS: BP 136/75
== END 2019-11-13 14:31 | disposition home or self-care (01) ==
LOC: ED 09:54
DX: M77.11 Lateral epicondylitis, right elbow (principal); J45.909 Unspecified asthma, uncomplicated; K21.9 Gastro-esophageal reflux disease without esophagitis; F41.9 Anxiety disorder, unspecified; F32.9 Major depressive disorder, single episode, unspecified; Z79.82 Long term (current) use of aspirin; Z88.8 Allergy status to other drugs, medicaments and biological substances; F17.210 Nicotine dependence, cigarettes, uncomplicated
CPT/HCPCS: 36415; 80053; 84702; 85025; 85652; 86140; 99282; J1885